=== PATIENT | male | born 1980 | race Caucasian/White ===

== ENCOUNTER 2017-01-02 09:42 | Emergency (ER) | payer MEDICAID ==
[2017-01-02] MEDS ORDERED: LIDOCAINE 1%, 20ML ONE (10:20)
[2017-01-02] MEDS ORDERED: DIPH,PERTUSS(ACELL),TET VAC/PF 0.5 ML IM-VACC ONE (10:20)
== END 2017-01-02 10:20 ==
LOC: ED 09:42
DX: S60.457A Superficial foreign body of left little finger, initial encounter (principal); X58.XXXA Exposure to other specified factors, initial encounter; Y93.89 Activity, other specified; Y99.8 Other external cause status; Y92.89 Other specified places as the place of occurrence of the external cause
CPT/HCPCS: 10120; 99284